=== PATIENT | female | born 1960 | race Caucasian/White ===

== ENCOUNTER 2019-01-11 22:24 | Emergency (ER) | payer BC, OTHER ==
[2019-01-11] MEDS ORDERED: NS 0.9% 1000 ML** 1,000 ML IV ONE (22:49)
[2019-01-11] MEDS ORDERED: Clindamycin 600 MG/D5W BAG(*) 600 MG/50 ML BAG IV ONE (22:52)
--- NOTE | 2019-01-11 23:04 | ED ---
Lower Extremity - HPI Summary HPI Summary: 58-year-old female presents with a rash to left foot for the past 2 days. She states she had an abrasion on her foot couple weeks ago. States was seen by podiatry as she started to get erythema around the wound. She was started on clindamycin yesterday. She's taken 6 doses. She denies any fevers or chills. States that the redness has spread a little bit. She denies any swelling to her legs. She is not diabetic. no pain into her calf. no drainage from area. is able to ambulate on area. - History of Current Complaint Chief Complaint: EDExtremityLower Stated Complaint: INFECTION IN LEFT FOOT PER PT Time Seen by Provider: 01/11/19 22:42 Pain Intensity: 2 - Allergies/Home Medications Allergies/Adverse Reactions: Allergies Allergy/AdvReac Type Severity Reaction Status Date / Time MS Penicillins [Penicillins] Allergy Swelling Verified 08/17/16 15:13 Home Medications: Home Medications Fluticasone HFA 110 mcg(NF) [Flovent HFA 110 mcg(NF)] 2 puff INH BID 01/12/19 [ History Confirmed 01/12/19] Fluticasone NASAL SPRAY 50MCG* [Flonase NASAL SPRAY 50MCG*] 2 spray BOTH NARES DAILY 01/12/19 [History Confirmed 01/12/19] Gabapentin 300 mg PO DAILY 01/12/19 [History Confirmed 01/12/19] Lisinopril [Lisinopril 2.5 MG-] 2.5 mg PO DAILY 01/12/19 [History Confirmed 07/23] Nadolol (NF) 10 mg PO DAILY 01/12/19 [History Confirmed 01/12/19] Omeprazole 20 mg PO DAILY 01/12/19 [History Confirmed 01/12/19] Sertraline* [Zoloft*] 37 mg PO DAILY 01/12/19 [History Confirmed 01/12/19] PMH/Surg Hx/FS Hx/Imm Hx Endocrine/Hematology History: Denies: Hx Diabetes Cardiovascular History: Reports: Hx Hypertension - MEDICATION CONTROLLED Denies: Hx Angina, Hx Coronary Artery Disease, Hx Hypercholesterolemia, Hx Myocardial Infarction, Hx Pacemaker/ICD, Hx Valvular Heart Disease Respiratory History: Reports: Hx Asthma - LAST 10 YRS., Hx Pneumonia, Hx Seasonal Allergies, Other Respiratory Problems/Disorders GI History: Reports: Hx Gastroesophageal Reflux Disease - takes PPI History: Denies: Hx Renal Disease Musculoskeletal History: Reports: Hx Arthritis, Other Musculoskeletal History - TMJ, left second toe fracture Sensory History: Reports: Hx Cataracts - bilateral, Hx Contacts or Glasses Denies: Hx Hearing Aid Opthamlomology History: Reports: Hx Cataracts - bilateral, Hx Contacts or Glasses Neurological History: Reports: Hx Migraine Psychiatric History: Reports: Hx Anxiety, Hx Depression Denies: Hx Panic Disorder - Cancer History Hx Chemotherapy: No Hx Radiation Therapy: No - Surgical History Surgery Procedure, Year, and Place: tubal, hernia repair as child, minor left knee procedure, LEFT 2ND TOE, RT BREAST BIOPSY Hx Anesthesia Reactions: No Infectious Disease History: No Infectious Disease History: Denies: Traveled Outside the [place] in Last 30 Days - Social History Substance Use Type: Reports: None Hx Tobacco Use: Yes Review of Systems Negative: Fever, Chills Negative: Chest Pain Negative: Shortness Of Breath Positive: Rash All Other Systems Reviewed And Are Negative: Yes Physical Exam Triage Information Reviewed: Yes Vital Signs On Initial Exam: Initial Vitals Temp Pulse Resp BP Pulse Ox 97.6 F 70 16 143/86 96 01/11/19 22:28 01/11/19 22:28 01/11/19 22:28 01/11/19 22:28 01/11/19 22:28 Vital Signs Reviewed: Yes Appearance: Positive: Well-Appearing Skin: Positive: Warm, Dry, Other - 5cm by 3cm erythema of left foot with some streaking that does not extend further than 5cm from central area of erythema. erythema extends no more than 1cm above skin markings Head/Face: Positive: Normal Head/Face Inspection Eyes: Positive: Normal, Conjunctiva Clear ENT: Positive: Pharynx normal Respiratory/Lung Sounds: Positive: Clear to Auscultation, Breath Sounds Present Cardiovascular: Positive: Normal, RRR Musculoskeletal: Positive: Strength/ROM Intact - left foot, Other - capillary refill<2 secs Neurological: Positive: Normal Psychiatric: Positive: Normal Diagnostics - Vital Signs Vital Signs Temp Pulse Resp BP Pulse Ox 01/11/19 22:28 97.6 F 70 16 143/86 96 - Laboratory Result Diagrams: 01/11/19 23:05 01/11/19 22:50 Lab Statement: Any lab studies that have been ordered have been reviewed, and results considered in the medical decision making process. Re-Evaluation - Re-Evaluation First Eval Re-Evaluation Time: 00:46 Change: Improved Comment: erythema improved after IV antibiotics Lower Extremity Course/Dx - Course Course Of Treatment: 58-year-old female presents with a rash to left foot for the past 2 days. She states she had an abrasion on her foot couple weeks ago. States was seen by podiatry as she started to get erythema around the wound. She was started on clindamycin yesterday. She's taken 6 doses. She denies any fevers or chills. States that the redness has spread a little bit. She denies any swelling to her legs. She is not diabetic. no pain into her calf. no drainage from area. is able to ambulate on area. On exam has 5 cm right 3 cm area of erythema with some streaking to the bottom of left foot. Area has manuel on it from two days and only extends centimeter past the kath. white blood cell count normal. Lactic normal. Has no fever. Has only a minimal amount spreading erythema for the past 2 days so discussed that we'll add on doxycycline. Do not see an indication to admit at this point as erythema has not extended much further over the past [address] Tipton. Told to start the doxycycline tomorrow. told follow up with primary. warned if redness increases tomorrow or develop fever to return. Patient understands and agrees with plan. - Diagnoses Differential Diagnosis/HQI/PQRI: Positive: Cellulitis, Other - sepsis, abscess Provider Diagnoses: Cellulitis of left foot Discharge - Sign-Out/Discharge Documenting (check all that apply): Patient Departure Patient Received Moderate/Deep Sedation with Procedure: No - Discharge Plan Condition: Good Disposition: HOME Prescriptions: DOXYcycline CAP(*) [DOXYcycline 100MG CAP(*)] 100 mg PO BID #14 cap Patient Education Materials: Cellulitis (ED) Referrals: Ute Sultana MD [Primary Care Provider] - Additional Instructions: Elevate extremity continue clindamycin add on doxycyline twice a day for 7 days if no improvement tomorrow morning Take Tylenol every 6 hours for pain or fever Follow up with primary within 3 days Return to ED if develop fever or any new or worsening symptoms - Billing Disposition and Condition Condition: GOOD Disposition: Home
[2019-01-11 23:20] LABS: ABS Eosinophils 0.1 10^3/ul (0-0.6); ABS Monocytes 0.4 10^3/ul (0-0.8); ABS Neutrophils 2.9 10^3/ul (1.5-7.7); Eosinophil % 1.6 %; Hematocrit 37 % (35-47); Hemoglobin 12.3 g/dL (12.0-16.0); Lymphocyte % 37.3 %; Mean Corpuscular HGB Conc 33 g/dL (31-36); Mean Corpuscular Hemoglobin 28 pg (27-31); Mean Corpuscular Volume 83 fL (80-97); Mean Platelet Volume 8.1 fL (7.4-10.4); Nucleated Red Blood Cells % 0.1; Platelet Count 200 10^3/uL (150-450); Red Blood Count 4.43 10^6 /uL (3.70-4.87); Red Cell Distribution Width 14 % (10.5-15); White Blood Count 5.5 10^3/uL (3.5-10.8)
[2019-01-11 23:25] LABS: INR 0.96 (0.82-1.09)
[2019-01-11 23:37] LABS: Albumin 4.4 g/dL (3.2-5.2); Albumin/Globulin Ratio 1.4 (1-3); BUN/Creatinine Ratio 21.2 (8-20); C Reactive Protein 14.17 mg/L (<8.01); Calcium 9.8 mg/dL (8.6-10.3); EGFR African American 83.7 (>60); EGFR Non-African American 69.2 (>60); Globulin 3.1 g/dL (2-4); Potassium 3.9 mmol/L (3.5-5.0); Total Bilirubin 0.4 mg/dL (0.2-1.0); Total Protein 7.5 g/dL (6.4-8.9)
[2019-01-12 00:46] VITALS: BP 126/84
== END 2019-01-12 00:45 | disposition home or self-care (01) ==
LOC: ED 22:24
DX: L03.116 Cellulitis of left lower limb (principal); I10 Essential (primary) hypertension; J45.909 Unspecified asthma, uncomplicated; K21.9 Gastro-esophageal reflux disease without esophagitis; F41.9 Anxiety disorder, unspecified; F32.9 Major depressive disorder, single episode, unspecified; Z88.0 Allergy status to penicillin; Z79.51 Long term (current) use of inhaled steroids; Z79.899 Other long term (current) drug therapy; Z87.891 Personal history of nicotine dependence
CPT/HCPCS: 36415; 80053; 83605; 85025; 85610; 86140; 87040; 96365; 96366; 99283